=== PATIENT | female | born 1990 | race Caucasian/White ===

== ENCOUNTER 2022-03-04 17:51 | Emergency (ER) | payer BC ==
[~2022-03-04] VITALS: Ht 170 cm; Wt 76.0 kg
--- NOTE | 2022-03-04 19:26 | ED Abdominal Pain ---
General Chief Complaint: Abdominal/GI Problems Stated Complaint: RIB SPASMS Nursing Triage Note: PT CO OF R UPPER QUAD ABD SPASMS AND PAIN RATES 7/10. PT HAS SOME NAUSEA NO VOMITING OR DIARRHEA. PT WAS SEEN AT [facility] AND WAS GIVEN MUSCLE RELAXANT AND ZOFRAN Source of Information: Patient Exam Limitations: No Limitations (HALLEY PATE) History of Present Illness Date Seen by Provider: Mar 04, 2022 Time Seen by Provider: 19:23 Initial Comments Patient is a 31-year-old female with a history of cystic fibrosis who presents the ED with pain and discomfort to her upper abdomen. She states this starts to her epigastric left upper quadrant radiates to right upper quadrant. Describes as spasming. Started around 1:00 this morning woke up took some NSAID. Went back to sleep started having spasming throughout the day. Went to [facility] urgent care was given muscle relaxer and Zofran as she felt nauseous without much improvement. She states it felt worse after she did eat. History of appendectomy in the past. She had some chest discomfort today but that has improved. She does take azithromycin, Creon and Trikafta. She reports annual liver checks. Denies any vomiting, diarrhea. She reports some mild vaginal discharge without any urinary symptoms. Not concern for . Denies headache, visual changes, unilateral muscle weakness or sensory changes (HALLEY PATE) Allergies and Home Medications Allergies Coded Allergies: Sulfa (Sulfonamide Antibiotics) (Verified Allergy, Unknown, 03/04/22) Patient Home Medication List Home Medication List Reviewed: Yes (HALLEY PATE) Review of Systems Review of Systems Constitutional: No chills, No diaphoresis, No malaise EENTM: No Blurred Vision, No Double Vision Respiratory: Denies Cough Cardiovascular: Denies Chest Pain Gastrointestinal: Abdominal Pain; Denies Diarrhea; Nausea; Denies Vomiting Genitourinary: Denies Burning, Denies Discharge Musculoskeletal: No back pain, No gout Skin: No change in color (HALLEY PATE) All Other Systems Reviewed Negative Unless Noted: Yes (HALLEY PATE) Past Czprtkf-Xlvtzd-Kojbaf Hx Patient Social History Tobacco Use?: No Substance use?: No Alcohol Use?: No Pt feels they are or have been: No (HALLEY PATE) Past Medical History Surgery/Hospitalization HX: CYCSTIC FIBROSIS Last Menstrual Period: Feb 25, 2022 (HALLEY PATE) Physical Exam Vital Signs Vital Signs - First Documented 03/04/22 18:28 Temp 36.8 Pulse 82 Resp 18 B/P (MAP) 138/91 (107) Pulse Ox 100 (ALMA MOORE MD) Vital Signs Capillary Refill : Less Than 3 Seconds (HALLEY PATE) Height/Weight/BMI Height: '" Weight: lbs. oz. kg; 26.00 BMI Method: General Appearance: WD/WN, no apparent distress HEENT: PERRL/EOMI, normal ENT inspection, TMs normal, pharynx normal Neck: non-tender, full range of motion, supple Respiratory: chest non-tender, lungs clear, normal breath sounds, no respiratory distress Cardiovascular: regular rate, rhythm, no edema, no gallop, no JVD Gastrointestinal: normal bowel sounds, non tender, no organomegaly, no pulsatile mass, tenderness (Epigastric tenderness on palpation. Normal bowel so unds throughout. No rebound or guarding) Extremities: normal range of motion, non-tender, normal inspection, no pedal edema Back: normal inspection, no CVA tenderness Neurologic/Psychiatric: engine specialist II-XII nml as tested, no motor/sensory deficits, alert, normal mood/affect Skin: normal color, warm/dry (HALLEY PATE) Progress/Results/Core Measures Results/Orders Lab Results Laboratory Tests Test 03/04/22 18:57 03/04/22 19:39 Range/Units White Blood Count 6.1 4.3-11.0 10^3/uL Red Blood Count 3.90 3.80-5.11 10^6/uL Hemoglobin 13.5 11.5-16.0 g/dL Hematocrit 40 35-52 % Mean Corpuscular Volume 102 H 80-99 fL Mean Corpuscular Hemoglobin 35 H 25-34 pg Mean Corpuscular Hemoglobin Concent 34 32-36 g/dL Red Cell Distribution Width 12.2 10.0-14.5 % Platelet Count 158 130-400 10^3/uL Mean Platelet Volume 11.0 9.0-12.2 fL Immature Granulocyte % (Auto) 0 % Neutrophils (%) (Auto) 63 42-75 % Lymphocytes (%) (Auto) 26 12-44 % Monocytes (%) (Auto) 9 0-12 % Eosinophils (%) (Auto) 2 0-10 % Basophils (%) (Auto) 1 0-10 % Neutrophils # (Auto) 3.9 1.8-7.8 10^3/uL Lymphocytes # (Auto) 1.6 1.0-4.0 10^3/uL Monocytes # (Auto) 0.6 0.0-1.0 10^3/uL Eosinophils # (Auto) 0.1 0.0-0.3 10^3/uL Basophils # (Auto) 0.0 0.0-0.1 10^3/uL Immature Granulocyte # (Auto) 0.0 0.0-0.1 10^3/uL Sodium Level 142 135-145 MMOL/L Potassium Level 4.1 3.6-5.0 MMOL/L Chloride Level 109 H 98-107 MMOL/L Carbon Dioxide Level 22 21-32 MMOL/L Anion Gap 11 5-14 MMOL/L Blood Urea Nitrogen 15 7-18 MG/DL Creatinine 0.92 0.60-1.30 MG/DL Estimat Glomerular Filtration Rate 85 BUN/Creatinine Ratio 16 Glucose Level 104 70-105 MG/DL Calcium Level 8.9 8.5-10.1 MG/DL Corrected Calcium 8.8 8.5-10.1 MG/DL Total Bilirubin 1.0 0.1-1.0 MG/DL Aspartate Amino Transf (AST/SGOT) 30 5-34 U/L Alanine Aminotransferase (ALT/SGPT) 53 0-55 U/L Alkaline Phosphatase 57 40-136 U/L Troponin I < 0.028 <0.028 NG/ML Total Protein 6.9 6.4-8.2 GM/DL Albumin 4.1 3.2-4.5 GM/DL Lipase 12 8-78 U/L Urine Color YELLOW Urine Clarity CLEAR Urine pH 7.0 5-9 Urine Specific [place] 1.010 L 1.016-1.022 Urine Protein NEGATIVE NEGATIVE Urine Glucose (UA) NEGATIVE NEGATIVE Urine Ketones NEGATIVE NEGATIVE Urine Nitrite NEGATIVE NEGATIVE Urine Bilirubin NEGATIVE NEGATIVE Urine Urobilinogen 0.2 < = 1.0 MG/DL Urine Leukocyte Esterase 1+ H NEGATIVE Urine RBC (Auto) NEGATIVE NEGATIVE Urine RBC RARE /HPF Urine WBC 2-5 /HPF Urine Squamous Epithelial Cells >50 H /HPF Urine Crystals NONE /LPF Urine Bacteria MODERATE H /HPF Urine Casts NONE /LPF Urine Mucus SMALL H /LPF Urine Culture Indicated YES Urine Test NEGATIVE NEGATIVE (ALMA MOORE MD) Vital Signs/I&O 03/04/22 03/04/22 18:28 22:01 Temp 36.8 Pulse 82 80 Resp 18 17 B/P (MAP) 138/91 (107) 104/73 Pulse Ox 100 98 (ALMA MOORE MD) Blood Pressure Mean: 107 Comment Sinus rhythm, 73 bpm, QRS duration 109 MS, QTc 421 MS (HALLEY PATE) Departure Communication (PCP) Patient with upper abdominal spasming. History of cystic fibrosis. Had some mild chest discomfort today. EKG normal sinus rhythm. Normal troponin. Lab work was otherwise unremarkable. Urinalysis positive for squamous cell and leukocyte +1. Culture currently pending. Does not appear to be UTI without any current symptoms. If positive will treat with antibiotics. Normal white blood count. She has no flank pain or suprapubic pain, burning with urination, frequent urination. CT abdomen pelvis concerning for constipation. She states she did have a bowel movement today. History of constipation as a kid. No change in diet. No evidence of obstruction. She did have some stool in her small bowel with some dilation. Concerning for delayed transit. Discussed with patient these results. Discussed trying laxative such as Dulcolax, MiraLAX and magnesium citrate. If this does not improve her symptoms would be reasonable follow-up outpatient for reevaluation of gallbladder disease. She did not have severe tenderness to the right upper quadrant. History of appendectomy. Denies indigestion or burning sensation in the chest. Discussed other etiologies such as muscle spasm, gallbladder disease, GERD, gastritis. Denies excessive NSAID use or alcohol use suggesting gastric ulcers. If no improvement and worsening pain may return back to ED for further evaluation (HALLEY PATE) Impression Primary Impression: Abdominal pain Disposition: 01 HOME, SELF-CARE Condition: Stable Departure-Patient Inst. Decision time for Depature: 21:22 (HALLEY PATE) Referrals: [facility] [place] NO,LOCAL PHYSICIAN (PCP) Primary Care Physician Patient Instructions: Abdominal Pain, Adult ED Add. Discharge Instructions: Recommend trying MiraLAX, Dulcolax and if no improvement consider magnesium citrate. If continue having symptoms after having several bowel movements recommend further evaluation with your primary care physician for biliary colic, gallbladder disease. Recommend high-fiber diet and drink plenty of fluids All discharge instructions reviewed with patient and/or family. Voiced understanding. ATTENDING PHYSICIAN NOTE: I was physically present as attending physician in the emergency department during the care of this patient, but I was not directly involved in the decision making or delivery of care for this patient. (ALMA MOORE MD) HALLEY PATE Mar 04, 2022 19:26 ALMA MOORE MD Mar 05, 2022 08:32
[2022-03-04 19:29] LABS: BASOPHILS % (AUTO) 1 % (0-10); EOSINOPHILS # (AUTO) 0.1 10^3/uL (0.0-0.3); EOSINOPHILS % (AUTO) 2 % (0-10); HEMATOCRIT 40 % (35-52); HEMOGLOBIN 13.5 g/dL (11.5-16.0); LYMPHOCYTES # (AUTO) 1.6 10^3/uL (1.0-4.0); LYMPHOCYTES % (AUTO) 26 % (12-44); MEAN CORPUSCULAR HEMOGLOBIN 35 pg (25-34); MEAN CORPUSCULAR HGB CONC 34 g/dL (32-36); MEAN CORPUSCULAR VOLUME 102 fL (80-99); MONOCYTES # (AUTO) 0.6 10^3/uL (0.0-1.0); MONOCYTES % (AUTO) 9 % (0-12); NEUTROPHILS # (AUTO) 3.9 10^3/uL (1.8-7.8); NEUTROPHILS % (AUTO) 63 % (42-75); PLATELET COUNT 158 10^3/uL (130-400); WHITE BLOOD COUNT 6.1 10^3/uL (4.3-11.0)
[2022-03-04 19:44] LABS: BILIRUBIN,URINE NEGATIVE (NEGATIVE); CLARITY,URINE CLEAR; COLOR,URINE YELLOW; GLUCOSE, URINE (UA) NEGATIVE (NEGATIVE); KETONES,URINE NEGATIVE (NEGATIVE); LEUKOCYTE ESTERASE ,URINE 1+ (NEGATIVE); NITRITE,URINE NEGATIVE (NEGATIVE); PROTEIN,URINE NEGATIVE (NEGATIVE)
[2022-03-04] MEDS ORDERED: morphine INJ 10 MG/ML 1ML (SYR OR VIAL) IVP ONE (19:45)
[2022-03-04] MEDS ORDERED: NS 100 ML (IVPB) BAG IV ONE (20:00)
[2022-03-04] MEDS ORDERED: IOHEXOL 350 MG/ML 100 ML (OMNIPAQUE 350) VIAL IV ONE (20:00)
[2022-03-04 20:06] LABS: BACTERIA,URINE MODERATE /HPF; RBC,URINE RARE /HPF; SQUAMOUS EPITHELIAL CELL,UR >50 /HPF
--- NOTE | 2022-03-04 20:59 | Diagnostic Imaging Report ---
PROCEDURE: CT abdomen and pelvis with contrast. TECHNIQUE: Multiple contiguous axial images were obtained through the abdomen and pelvis after administration of intravenous contrast. Auto Exposure Controls were utilized during the CT exam to meet ALARA standards for radiation dose reduction. All CT scans use one or more of the following dose optimizing techniques: automated exposure control, MA and/or KvP adjustment based on patient size and exam type or iterative reconstruction. INDICATION: Right upper quadrant abdominal spasms. Pain. Nausea. History of cystic fibrosis. COMPARISON: None. FINDINGS: Included portions of the lung bases are clear. CT ABDOMEN: Moderate amount of air and stool is noted scattered throughout the colon. Normal appendix cannot be adequately identified, but appears to be surgically absent. Moderate amount of fecal is stool is also noted within the distal small bowel. Additionally, there is mild abnormal small bowel dilatation. It measures 3.3 cm in the lower pelvis. More proximal small bowel loops are nondistended. There is advanced fatty atrophy of the pancreas consistent with provided clinical history of cystic fibrosis. Kidneys, adrenal glands, spleen and liver have a normal CT appearance. There is no loculated fluid collection, free fluid or free air within the abdomen. No abnormal mesenteric or retroperitoneal adenopathy is identified. Osseous structures show no acute abnormality. CT PELVIS: Urinary bladder is unopacified. No calculi are seen within the urinary bladder. There is no loculated fluid collection, free fluid or free air within the pelvis. No abnormal lymph nodes are seen. Osseous structures show no acute abnormality. IMPRESSION: 1. Large amount of air and stool is seen scattered throughout the colon. Please correlate for constipation. 2. Moderate amount of fecalized stool within the distal small bowel and mild abnormal small bowel dilatation. This is also likely related to delayed transit. Mechanical obstruction is felt to be unlikely. Dictated by: Dictated on workstation # [id number]
[2022-03-04 21:03] LABS: ALANINE AMINOTRANSFERASE 53 U/L (0-55); ALBUMIN 4.1 GM/DL (3.2-4.5); ALKALINE PHOSPHATASE 57 U/L (40-136); BUN/CREATININE RATIO 16; CALCIUM 8.9 MG/DL (8.5-10.1); CARBON DIOXIDE 22 MMOL/L (21-32); CHLORIDE 109 MMOL/L (98-107); CREATININE SERUM 0.92 MG/DL (0.60-1.30); GFR ESTIMATED 85; GLUCOSE 104 MG/DL (70-105); LIPASE 12 U/L (8-78); POTASSIUM 4.1 MMOL/L (3.6-5.0); SODIUM 142 MMOL/L (135-145); TOTAL PROTEIN 6.9 GM/DL (6.4-8.2)
[2022-03-04 22:01] VITALS: BP 104/73
== END 2022-03-04 22:01 | disposition home or self-care (01) ==
LOC: ER 17:53 → EDBD 17:53 → ER 22:01
DX: R10.10 Upper abdominal pain, unspecified (principal); R07.9 Chest pain, unspecified; R82.998 Other abnormal findings in urine; Z87.09 Personal history of other diseases of the respiratory system
CPT/HCPCS: 36415; 74177; 80053; 81000; 83690; 84484; 84703; 85025; 87088; 93005